=== PATIENT | female | born 2000 | race Caucasian/White ===

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

== ENCOUNTER 2020-04-12 16:26 | Emergency (ER) | payer OTHER ==
[~2020-04-12] VITALS: Ht 154.9 cm; Wt 65.9 kg
[~2020-04-12 16:26] MED LIST changes: +BENTYL 20MG20 MG/TAB PO; +MONONESSA; +PROZAC 10MG10 MG PO; +PROZAC 20MG20 MG PO; +REGLAN 10MG10 MG/TAB PO; +TYLENOL 325MG325 MG PO; +ZOFRAN ODT4 MG PO; +ZOLOFT 100MG100 MG PO; +ZYRTEC 10MG10 MG PO
[2020-04-12 16:36] VITALS: BP 108/68; TEMP 97.7
[2020-04-12] MEDS ORDERED: ABILIFY5 MG PO (17:45)
[2020-04-12 18:13] VITALS: PULSE 76
== END 2020-04-12 18:13 | disposition home or self-care (01) ==
LOC: COL.ER 16:26
DX: S60.222A Contusion of left hand, initial encounter (principal); F17.290 Nicotine dependence, other tobacco product, uncomplicated; W22.8XXA Striking against or struck by other objects, initial encounter; Y92.59 Other trade areas as the place of occurrence of the external cause

== ENCOUNTER 2020-04-24 21:07 | Emergency (ER) | payer OTHER ==
[~2020-04-24] VITALS: Ht 154.9 cm; Wt 63.6 kg
[~2020-04-24 21:07] MED LIST changes: +ABILIFY5 MG PO
[2020-04-24 21:13] VITALS: BP 113/70; TEMP 99.1
[2020-04-24 21:45] VITALS: PULSE 79
== END 2020-04-24 21:45 | disposition home or self-care (01) ==
LOC: COL.ER 21:07
DX: S60.221A Contusion of right hand, initial encounter (principal); W22.8XXA Striking against or struck by other objects, initial encounter

== ENCOUNTER 2020-05-03 15:42 | Emergency (ER) | payer OTHER ==
[~2020-05-03] VITALS: Ht 154.9 cm; Wt 63.6 kg
[2020-05-03 15:50] VITALS: BP 96/66; TEMP 98.3
[2020-05-03 17:39] VITALS: PULSE 61
== END 2020-05-03 17:39 | disposition home or self-care (01) ==
LOC: COL.ER 15:42
DX: M79.672 Pain in left foot (principal); F17.290 Nicotine dependence, other tobacco product, uncomplicated

== ENCOUNTER 2020-07-16 05:30 | Emergency (ER) | payer OTHER ==
[~2020-07-16] VITALS: Ht 152.4 cm; Wt 63.6 kg
[2020-07-16 05:34] VITALS: TEMP 97.9
[2020-07-16 06:05] LABS: BASO % 0.2 % (0.0-2.0); EOS # 0.1 (0.0-0.7); EOS % 1.6 % (0-4.0); GRAN # 3.9 (1.4-6.5); GRAN % 48.1 % (42.2-75.2); HEMOGLOBIN 11.6 g/dl (12.0-15.0); LYMPH # 3.6 (1.2-3.4); LYMPH % 43.6 % (20.0-51.0); MEAN CELL VOLUME 88 fl (80.0-95.0); MEAN CORPUSCULAR HEMOGLOBIN 29 pg (26.0-32.0); MEAN CORPUSCULAR HGB CONC 33 g/dl (33.0-37.0); MEAN PLATELET VOLUME 10.8 fl (7.4-10.4); MONO # 0.5 (0.1-0.6); MONO % 6.3 % (1.7-9.3); PLATELET COUNT 179 K/mm3 (130-400); RED BLOOD COUNT 3.94 M/mm3 (4.10-5.30); REDCELL DISTRIBUTION WIDTH-CV 11.9 % (11.5-14.5)
[2020-07-16 06:07] LABS: HEMATOCRIT 34.8 % (35.0-45.0)
[2020-07-16 06:16] LABS: ALANINE AMINOTRANSFERASE 11 U/L (4-34); ALBUMIN 3.6 gm/dL (3.5-5.0); ALKALINE PHOSPHATASE 59 U/L (50-136); ANION GAP 8 mmol/L (7-16); AST,SGOT 24 U/L (15-37); BILIRUBIN,TOTAL 0.6 mg/dL (0.0-1.0); BLOOD UREA NITROGEN 11 mg/dL (7-17); CALCIUM 7.5 mg/dL (8.4-10.2); CARBON DIOXIDE 22 mmol/L (22-30); CHLORIDE 110 mmol/L (98-107); GLUCOSE 90 mg/dL (74-106); LIPASE 71 U/L (23-300); SODIUM 140 mmol/L (137-145); TOTAL PROTEIN 6.5 gm/dL (6.4-8.2)
[2020-07-16 06:17] LABS: C-REACTIVE PROTEIN < 0.5 mg/dL (0.0-0.9); POTASSIUM 2.8 mmol/L (3.4-5.0)
[2020-07-16] MEDS ORDERED: K-TAB10 PO ×2 (07:28)
[2020-07-16] MEDS ORDERED: CALCIUM 600-D 61 TAB PO ×2 (07:28)
[2020-07-16] MEDS ORDERED: NEXIUM 20MG20 MG PO ×2 (08:34)
[2020-07-16] MEDS ORDERED: PHENERGAN 25 TA25 MG PO ×2 (08:34)
[2020-07-16 09:15] VITALS: BP 106/61; PULSE 66
[2020-07-17] MEDS ORDERED: K-TAB10 PO (15:52)
[2020-07-17] MEDS ORDERED: PHENERGAN 25 TA25 MG PO (15:52)
[2020-07-17] MEDS ORDERED: CALCIUM 600-D 61 TAB PO (15:52)
[2020-07-17] MEDS ORDERED: NEXIUM 20MG20 MG PO (15:52)
== END 2020-07-16 09:15 | disposition home or self-care (01) ==
LOC: COL.ER 05:30
PROVIDERS: Emergency Medicine
DX: R10.13 Epigastric pain (principal); R11.2 Nausea with vomiting, unspecified; E87.6 Hypokalemia; E83.51 Hypocalcemia; F32.9 Major depressive disorder, single episode, unspecified
CPT/HCPCS: J0610; J1630; J2270; J2405; J3480; J7030

== ENCOUNTER 2021-02-07 16:46 | Emergency (ER) | payer OTHER ==
[~2021-02-07] VITALS: Ht 152.4 cm; Wt 62.7 kg
[~2021-02-07 16:46] MED LIST changes: +CALCIUM 600-D 61 TAB PO; +K-TAB10 PO; +NEXIUM 20MG20 MG PO; +PHENERGAN 25 TA25 MG PO
[2021-02-07 17:02] VITALS: TEMP 98.5
[2021-02-07 18:02] VITALS: BP 132/76; PULSE 74
== END 2021-02-07 18:02 | disposition home or self-care (01) ==
LOC: COL.ER 16:46
DX: S93.402A Sprain of unspecified ligament of left ankle, initial encounter (principal); W19.XXXA Unspecified fall, initial encounter; Y93.67 Activity, basketball